=== PATIENT | male | born 2000 | race Caucasian/White ===

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

== ENCOUNTER 2023-01-01 21:06 | Emergency (ER) | payer OTHER ==
[~2023-01-01] VITALS: Ht 182.9 cm; Wt 89.4 kg
[2023-01-01 22:36] VITALS: BP 139/77
[2023-01-01] MEDS ORDERED: ERYT5OIN51 OP (23:13)
[2023-01-01 23:20] VITALS: BP 139/77
--- NOTE | 2023-01-01 23:20 | NUR ---
Patient discharged with v/s stable. Written and verbal after care instructions given and explained. Patient alert, oriented and verbalized understanding of instructions. Ambulatory with steady gait. All questions addressed prior to discharge. ID band removed. Patient advised to follow up with PMD. Rx of ERYTHROMYCIN BASE (ERYTHROMYCIN) given. Patient educated on indication of medication including possible reaction and side effects. Opportunity to ask questions provided and answered. DX: SERGIO
== END 2023-01-01 23:20 | disposition home or self-care (01) ==
LOC: MED 21:06
DX: H00.012 Hordeolum externum right lower eyelid (principal)
CPT/HCPCS: 99283

== ENCOUNTER 2024-04-29 23:12 | Emergency (ER) | payer OTHER ==
[~2024-04-29] VITALS: Ht 182.9 cm; Wt 84.8 kg
[~2024-04-29 23:12] MED LIST: ERYT5OIN51 OP
[2024-04-29 23:39] VITALS: BP 138/79; PULSE 62; RESP 14; TEMP 98.9; O2SAT 99
[2024-04-29 23:50] VITALS: BP 136/79; PULSE 62; RESP 14; TEMP 98.9; O2SAT 99
[2024-04-30 00:19] LABS: HIV RAPID SCREEN NON-REACTIVE (NON REACTIV)
[2024-05-01 08:43] LABS: RAPID PLASMA REAGIN NON-REACTIVE (Non Reactiv)
== END 2024-04-30 00:34 | disposition home or self-care (01) ==
LOC: MED 23:12
DX: A63.0 Anogenital (venereal) warts (principal); Z79.899 Other long term (current) drug therapy
CPT/HCPCS: 36415; 86592; 87491; 87529; 99283